=== PATIENT | female | born 1965 | race Caucasian/White ===

== ENCOUNTER → 2017-04-12 | Outpatient (CLI) | payer BC ==
[~2017-04-12] MED LIST: IBUP-1022 PO; TYLE325T5 PO
--- NOTE | 2017-04-12 15:34 | REP ---
BILATERAL DIGITAL SCREENING MAMMOGRAM, 04/12/2017. Comparison 03/26/2016, 03/05/2015. Clinical history: Screening examination. No current complaint or personal history of breast cancer. Family history of breast cancer in a maternal aunt over age 50. The breast parenchyma is heterogeneously dense, which may limit the sensitivity of mammography. On the CC view of the left breast inner half just past the midline retroareolar zone in the central one-third of the breast, there is a zone of architectural distortion on the CC view, which I cannot confirm by location on the MLO projection. I see no other area of architectural distortion, dominant mass, clustered microcalcification nor other secondary sign of malignancy. Scattered lymph nodes are seen in the axilla. IMPRESSION: BIRADS ACR category 0, incomplete: Needs additional imaging evaluation. The patient should return for spot magnification view left CC with true ML, MLO views of the left breast and any additional images required along with scheduling and ultrasound of the breast for further evaluation. This mammogram was interpreted with the aid of an FDA-approved computer-aided detection system. The patient states she/he had a clinical breast exam in March 2016. The patient letter being requested is M0. (Dense). Signed by Dipak Lyon MD 04/12/2017 07:06 P
== END ==
LOC: M RAD 12:44
PROVIDERS: ATTEND Obstetrics & Gynecology
DX: R92.8 Other abnormal and inconclusive findings on diagnostic imaging of breast (principal)

== ENCOUNTER → 2017-04-20 | Outpatient (CLI) | payer BC ==
--- NOTE | 2017-04-20 14:08 | REP ---
DIAGNOSTIC MAMMOGRAM, LEFT BREAST: Diagnostic mammogram, left breast performed with multiple spot compression views obtained. An area of architectural distortion on the left CC view seen on the exam of 04/12/2017 compresses out to an unchanged appearance compared to multiple prior exams. There is no persistent architectural distortion or mass identified. IMPRESSION: ACR 2, benign. No persistent mass or architectural distortion. Recommend followup mammogram in 1 year. BI-RADS/ACR category 2 mammogram. Benign finding(s). Routine annual screening mammography (for women over age 40). The patient letter being requested is M1. Signed by Mendez Hawthorne MD 04/20/2017 05:04 P
== END ==
LOC: M RAD 12:52
PROVIDERS: ATTEND Obstetrics & Gynecology
DX: R92.2 Inconclusive mammogram (principal)

== ENCOUNTER → 2018-05-30 | Outpatient (CLI) | payer BC | LOC: M RAD 13:04 | DX: Z12.31 Encounter for screening mammogram for malignant neoplasm of breast (principal) | CPT/HCPCS: 77067 ==

== ENCOUNTER → 2018-06-07 | Outpatient (REF) | payer BC ==
[2018-06-07 13:06] LABS: BASO % 0.3 % (0.0-1.0); EOS % 0.1 % (0.0-3.0); HEMATOCRIT 38.1 % (36.0-47.0); HEMOGLOBIN 12.1 g/dl (12.0-15.5); IMMATURE GRANULOCYTE % 0.4 % (0-3.0); LYMPH # 2.9 10^3/uL (1.5-4.5); LYMPH % 30.1 % (24.0-44.0); MEAN CORPUSCULAR HEMOGLOBIN 32.7 pg (27.0-33.0); MEAN CORPUSCULAR HGB CONC 31.8 g/dl (32.0-36.5); MONO # 0.5 10^3/uL (0.0-0.8); MONO % 5.3 % (0.0-5.0); NEUTROPHILS # 6.1 10^3/uL (1.8-7.7); NEUTROPHILS % 63.8 % (36.0-66.0); PLATELET COUNT, AUTOMATED 316 10^3/uL (150-450); RED CELL DISTRIBUTION WIDTH 13.3 % (11.5-14.5); WHITE BLOOD COUNT 9.5 10^3/uL (4.0-10.0)
[2018-06-07 15:10] LABS: ANION GAP 11 MEQ/L (8-16); BLOOD UREA NITROGEN 13 MG/DL (7-18); CALCIUM LEVEL 9.2 MG/DL (8.5-10.1); CARBON DIOXIDE LEVEL 25 MEQ/L (21-32); CHLORIDE LEVEL 107 MEQ/L (98-107); CHOLESTEROL LEVEL 151 MG/DL (<200); CHOLESTEROL RISK RATIO 1.864 (<5); CREATININE FOR GFR 0.68 MG/DL (0.55-1.30); GLOMERULAR FILTRATION RATE > 60.0 (>51); GLUCOSE, FASTING 63 MG/DL (70-100); HDL CHOLESTEROL 81 MG/DL (>40); LDL CHOLESTEROL 57 MG/DL (<100); NON-HDL-C 70 MG/DL; POTASSIUM SERUM 4.2 MEQ/L (3.5-5.1); SODIUM LEVEL 143 MEQ/L (136-145); TOTAL 25(OH) VITAMIN D 21.8 NG/ML (30.0-100.0); TRIGLYCERIDES LEVEL 66 MG/DL (<150)
== END ==
LOC: M LABNEURO 09:18
DX: Z00.00 Encounter for general adult medical examination without abnormal findings (principal); E55.9 Vitamin D deficiency, unspecified
CPT/HCPCS: 84443

== ENCOUNTER → 2018-06-21 | Outpatient (REF) | payer BC ==
[2018-06-21 14:17] LABS: FREE T4 1.02 NG/DL (0.76-1.46)
== END ==
LOC: M LABNEURO 09:59
DX: R94.6 Abnormal results of thyroid function studies (principal)

== ENCOUNTER → 2019-06-05 | Outpatient (CLI) | payer BC ==
--- NOTE | 2019-06-05 12:51 | REPMRS ---
Patient History The patient states she had a clinical breast exam in April 2019.Patient is postmenopausal. Family history of endometrial cancer at age 50 or over in mother, breast cancer at age 50 or over in maternal aunt. Took estrogen for 6 months. 3D TOMOSYNTHESIS WAS PERFORMED. The Eleno Haley lifetime risk for breast cancer is 11.4%. Digital Mammo Screening Bilat: June 05, 2019 - Exam #: [id number] Bilateral CC and MLO view(s) were taken. Technologist: Carmen Nance, Technologist Prior study comparison: May 30, 2018, bilateral digital mammo screening bilat performed at [facility]. April 20, 2017, left breast digital mammo diagnostic unilateral performed at [facility]. FINDINGS: The breast tissue is heterogeneously dense. This may lower the sensitivity of mammography. There has been no change in the appearance of the mammogram from the prior studies. There is a moderate amount of residual fibroglandular tissue which is fairly symmetric. There is no interval development of dominant mass, areas of architectural distortion, or clustered microcalcification typical of malignancy. Assessment: BI-RADS/ACR category 1 mammogram. Negative Mammogram. Recommendation Routine screening mammogram in 1 year (for women over age 40). This mammogram was interpreted with the aid of an FDA-approved computer-aided dectection system. Electronically Signed By: Mendez Hawthorne MD 06/05/19 [id number]
== END ==
LOC: M RAD 11:27
PROVIDERS: ATTEND Obstetrics & Gynecology
DX: Z12.31 Encounter for screening mammogram for malignant neoplasm of breast (principal)

== ENCOUNTER → 2020-11-17 | Outpatient (CLI) | payer BC ==
--- NOTE | 2020-11-17 15:13 | REPMRS ---
Patient History The patient states she had a clinical breast exam in July 2020. Family history of endometrial cancer at age 50 or over in mother, breast cancer at age 50 or over in maternal aunt. Took estrogen for 6 months. Digital Woman Screen Mammo: November 17, 2020 - Exam #: [id number] Bilateral CC and MLO view(s) were taken. Technologist: RT Deobra Prior study comparison: June 05, 2019, bilateral digital mammo screening bilat, performed at [facility]. May 30, 2018, bilateral digital mammo screening bilat, performed at [facility]. April 12, 2017, bilateral digital mammo screening bilat, performed at [facility]. FINDINGS: There are scattered fibroglandular densities. The Volpara volumetric breast density category is:B. There has been no change in the appearance of the mammogram from the prior studies. There is a mild amount of scattered fibroglandular density which is fairly symmetric. There is no interval development of dominant mass, architectural distortion, or grouped microcalcification suggestive of malignancy. 3-D tomosynthesis shows no additional findings. Assessment: BI-RADS/ACR category 1 mammogram. Negative Mammogram. Recommendation Routine screening mammogram of both breasts in 1 year (for women over age 40). This patient's [facility] Lifetime Breast Cancer Risk is estimated at 11.1 %. This mammogram was interpreted with the aid of an FDA-approved computer-aided dectection system. Electronically Signed By: Abhi Qiu MD 11/17/20 [id number]
--- NOTE | 2020-11-17 15:40 | DEXAMM ---
INDICATION: Z13.820 SCREENING FOR OSTEOPOROSIS. COMPARISON: None. TECHNIQUE: Bone density was measured using dual-energy x-ray absorptiometry (DEXA). FINDINGS: AP SPINE L1-L4 BMD 1.090 g/cm2 Young Adult T-Score -0.8 Age Matched Z-Score -0.1. LT FEMUR, TOTAL BMD 0.986 g/cm2 Young Adult T-Score -0.2 Age Matched Z-Score 0.5. LT NECK BMD 0.923 g/cm2 Young Adult T-Score -0.8 Age Matched Z-Score 0.2. RT FEMUR, TOTAL BMD 0.914 g/cm2 Young Adult T-Score -0.7 Age Matched Z-Score -0.1. RT NECK BMD 0.910 g/cm2 Young Adult T-Score -0.9 Age Matched Z-Score 0.1. IMPRESSION: There is normal bone density of the spine. There is normal bone density of the left hip. There is normal bone density of the right hip. FOLLOW-UP: Recommendation for the next bone density exam: 5 years. <Electronically signed by Mendez Hawthorne > 11/17/20 [id number]
== END ==
LOC: M WHC 14:19
PROVIDERS: ATTEND Advanced Practice Midwife
DX: Z12.31 Encounter for screening mammogram for malignant neoplasm of breast (principal); Z13.820 Encounter for screening for osteoporosis

== ENCOUNTER → 2021-01-05 | Outpatient (CLI) | payer BC ==
--- NOTE | 2021-01-05 14:24 | REP ---
INDICATION: N95.0 POSTMENOPAUSAL BLEEDING. COMPARISON: None TECHNIQUE: Transvesical and transvaginal imaging FINDINGS: The uterus measures 7.2 x 3.8 by 5.1 cm. Within the uterus 2 hypoechoic/mixed echo areas were seen 1 measures 2.2 x 2.1 x 1.9 cm and the other 1.7 x 1.5 x 1.9 cm. The endometrial echo complex measures approximately 1.1 cm in thickness and is somewhat heterogenous. Adjacent to the endometrium a few echogenic foci were noted without definite cyst formation. The right ovary measures 3.1 x 1.5 x 1.3 cm and is within normal limits. Left ovary measures 3.1 x 1.3 x 1.4 cm and is within normal limits. IMPRESSION: The uterus is full size/mildly enlarged with myomatous changes as described above. There are some changes in the endometrial echo complex as described above. Consider follow-up with pelvic MRI. <Electronically signed by Socrates Davey > 01/05/21 [id number]
== END ==
LOC: M WHC 12:24
PROVIDERS: ATTEND Obstetrics & Gynecology
DX: N95.0 Postmenopausal bleeding (principal)

== ENCOUNTER → 2021-04-28 | Outpatient (CLI) | payer BC ==
[2021-04-28 17:08] LABS: ALT/SGPT 20 U/L (12-78); BILIRUBIN,TOTAL 0.4 MG/DL (0.2-1.0); BLOOD UREA NITROGEN 14 MG/DL (7-18); CALCIUM LEVEL 8.5 MG/DL (8.5-10.1); CARBON DIOXIDE LEVEL 27 MEQ/L (21-32); CHLORIDE LEVEL 106 MEQ/L (98-107); CHOLESTEROL LEVEL 204 MG/DL (<200); CHOLESTEROL RISK RATIO 2.344 (<5); CREATININE FOR GFR 0.64 MG/DL (0.55-1.30); GLOMERULAR FILTRATION RATE > 60.0 (>51); GLUCOSE, FASTING 79 MG/DL (70-100); HDL CHOLESTEROL 87 MG/DL (>40); LDL CHOLESTEROL 102 MG/DL (<100); NON-HDL-C 117 MG/DL; POTASSIUM SERUM 4.4 MEQ/L (3.5-5.1); SODIUM LEVEL 138 MEQ/L (136-145); TOTAL 25(OH) VITAMIN D 20.1 NG/ML (30.0-100.0); TOTAL PROTEIN 7.3 GM/DL (6.4-8.2); TRIGLYCERIDES LEVEL 73 MG/DL (<150)
--- NOTE | 2021-04-28 21:37 | REP ---
INDICATION: M79.644 PAIN IN RIGHT FINGERS COMPARISON: None. TECHNIQUE: AP, lateral, bilateral oblique views right hand. 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 Moderate degenerative changes are also identified throughout the remainder of the metacarpophalangeal and interphalangeal joints including periarticular sclerosis and minimal joint space narrowing. No evidence for acute fracture or dislocation. No subcutaneous emphysema or foreign body. 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 <Electronically signed by Romeo Kent > 04/28/21 [id number]
== END ==
LOC: M WUC 13:31
PROVIDERS: ATTEND Nurse Practitioner Family
DX: Z00.00 Encounter for general adult medical examination without abnormal findings (principal); E55.9 Vitamin D deficiency, unspecified; M79.644 Pain in right finger(s)

== ENCOUNTER → 2021-05-25 | Outpatient (CLI) | payer BC ==
--- NOTE | 2021-05-27 05:09 | REP ---
INDICATION: PERSONAL HX NICOTINE DEPENDENCE COMPARISON: None. TECHNIQUE: Axial noncontrast images from the thoracic inlet to the upper abdomen using low-dose lung screening technique (LDCT). FINDINGS: Lung ness are relatively well aerated and symmetric. There is a small amount of presumed scarring at the lingular base. No acute consolidation, significant nodule or mass lesion. No effusion. No pneumothorax. Tracheobronchial tree is patent. Mediastinum is grossly normal. IMPRESSION: Lung-RADS category 1. Management recommendations include annual low-dose CT surveillance. <Electronically signed by Romeo Kent > 05/27/21 [id number]
== END ==
LOC: M RAD 13:38
PROVIDERS: ATTEND Nurse Practitioner Family
DX: Z12.2 Encounter for screening for malignant neoplasm of respiratory organs (principal); Z87.891 Personal history of nicotine dependence

== ENCOUNTER → 2022-01-04 | Outpatient (CLI) | payer BC | LOC: M WHC 15:07 | PROVIDERS: ATTEND Advanced Practice Midwife | DX: Z12.31 Encounter for screening mammogram for malignant neoplasm of breast (principal) ==

== ENCOUNTER → 2022-06-28 | Outpatient (CLI) | payer BC ==
[2022-06-28 12:12] LABS: ALBUMIN 3.8 GM/DL (3.2-5.2); ALT/SGPT 21 U/L (12-78); BILIRUBIN,TOTAL 0.3 MG/DL (0.2-1.0); BLOOD UREA NITROGEN 13 MG/DL (7-18); CALCIUM LEVEL 9.1 MG/DL (8.5-10.1); CARBON DIOXIDE LEVEL 29 MEQ/L (21-32); CHLORIDE LEVEL 107 MEQ/L (98-107); CHOLESTEROL LEVEL 178 MG/DL (<200); CHOLESTEROL RISK RATIO 2.507 (<5); GLOMERULAR FILTRATION RATE > 60.0 (>51); GLUCOSE, FASTING 92 MG/DL (70-100); HDL CHOLESTEROL 71 MG/DL (>40); LDL CHOLESTEROL 85 MG/DL (<100); NON-HDL-C 107 MG/DL; POTASSIUM SERUM 4.3 MEQ/L (3.5-5.1); SODIUM LEVEL 141 MEQ/L (136-145); TOTAL PROTEIN 7.4 GM/DL (6.4-8.2); TRIGLYCERIDES LEVEL 108 MG/DL (<150)
== END ==
LOC: M WUC 08:42
PROVIDERS: ATTEND Nurse Practitioner Family
DX: Z00.00 Encounter for general adult medical examination without abnormal findings (principal)

== ENCOUNTER → 2022-10-05 | Outpatient (CLI) | payer BC | LOC: M RAD 12:42 | PROVIDERS: ATTEND Nurse Practitioner Family | DX: Z87.891 Personal history of nicotine dependence (principal) ==

== ENCOUNTER → 2023-05-03 | Outpatient (CLI) | payer BC | LOC: M WHC 12:39 | PROVIDERS: ATTEND Obstetrics & Gynecology | DX: Z13.820 Encounter for screening for osteoporosis (principal) ==

== ENCOUNTER → 2023-06-21 | Outpatient (REF) | payer BC ==
[2023-06-21 17:03] LABS: ALBUMIN 4.3 G/DL (3.2-5.2); ALKALINE PHOSPHATASE 101 U/L (46-116); ALT/SGPT 22 U/L (7.0-40); AST/SGOT 19 U/L (<34); BILIRUBIN,TOTAL 0.6 MG/DL (0.3-1.2); BLOOD UREA NITROGEN 20 MG/DL (9-23); CALCIUM LEVEL 9.5 MG/DL (8.5-10.1); CARBON DIOXIDE LEVEL 29 MMOL/L (20-31); CHLORIDE LEVEL 103 MMOL/L (98-107); CREATININE FOR GFR 0.72 MG/DL (0.55-1.30); GLOMERULAR FILTRATION RATE > 60.0 (>51); GLUCOSE, FASTING 84 MG/DL (60-100); POTASSIUM SERUM 4.8 MMOL/L (3.5-5.1); SODIUM LEVEL 141 MMOL/L (136-145); TOTAL PROTEIN 7.6 G/DL (5.7-8.2)
[2023-06-21 17:07] LABS: TOTAL 25(OH) VITAMIN D 35.2 NG/ML (20.0-100.0)
== END ==
LOC: M WUC 16:18
PROVIDERS: ATTEND Registered Nurse
DX: J45.20 Mild intermittent asthma, uncomplicated (principal); E55.9 Vitamin D deficiency, unspecified

== ENCOUNTER → 2023-07-05 | Outpatient (CLI) | payer BC | LOC: M WUC 11:44 | PROVIDERS: ATTEND Nurse Practitioner Family | DX: M54.50 Low back pain, unspecified (principal); M25.551 Pain in right hip ==

== ENCOUNTER → 2023-10-18 | Outpatient (CLI) | payer BC | LOC: M RAD 09:49 | PROVIDERS: ATTEND Nurse Practitioner Family | DX: Z87.891 Personal history of nicotine dependence (principal) ==

== ENCOUNTER 2024-03-05 06:42 | Day surgery (SDC) | payer BC ==
[~2024-03-05] VITALS: Ht 162.6 cm; Wt 72.1 kg
[~2024-03-05 06:42] MED LIST changes: +ALBU8.5H; +MELO7.5T35 PO; +NS 1,000 ML IV ONE
[2024-03-05] MEDS ORDERED: propofoL 200 MG/20 ML VIAL As Ordered ONE (07:18)
[2024-03-05] MEDS ORDERED: LIDOCAINE 2% 100MG/5ML SDV (FOR ANES.) As Ordered ONE (07:21)
[2024-03-05 07:53] VITALS: TEMP 97.3
[2024-03-05 08:12] VITALS: BP 112/58; O2SAT 18
== END 2024-03-05 08:14 | disposition home or self-care (01) ==
LOC: M OPP 06:42
PROVIDERS: ATTEND Internal Medicine Gastroenterology
DX: Z12.11 Encounter for screening for malignant neoplasm of colon (principal); Z86.010 Personal history of colon polyps; K64.0 First degree hemorrhoids; K57.30 Diverticulosis of large intestine without perforation or abscess without bleeding; Z87.891 Personal history of nicotine dependence; Z79.1 Long term (current) use of non-steroidal anti-inflammatories (NSAID); Z79.52 Long term (current) use of systemic steroids; Z79.899 Other long term (current) drug therapy

== ENCOUNTER → 2024-05-21 | Outpatient (CLI) | payer BC ==
[~2024-05-21] MED LIST changes: -NS 1,000 ML IV ONE
== END ==
LOC: M WHC 14:21
PROVIDERS: ATTEND Obstetrics & Gynecology
DX: Z12.31 Encounter for screening mammogram for malignant neoplasm of breast (principal); R92.323 Mammographic fibroglandular density, bilateral breasts

== ENCOUNTER → 2024-10-09 | Outpatient (CLI) | payer BC ==
[2024-10-09 10:03] LABS: ALBUMIN 3.8 G/DL (3.2-5.2); ALKALINE PHOSPHATASE 72 U/L (35-104); ALT/SGPT 11 U/L (7.0-40); AST/SGOT 12 U/L (<34); BILIRUBIN,TOTAL 0.4 MG/DL (0.3-1.2); BLOOD UREA NITROGEN 26 MG/DL (9-23); CALCIUM LEVEL 8.8 MG/DL (8.5-10.1); CARBON DIOXIDE LEVEL 28 MMOL/L (20-31); CHLORIDE LEVEL 103 MMOL/L (98-107); CHOLESTEROL LEVEL 188 MG/DL (<200); CHOLESTEROL RISK RATIO 2.48 (<5); CREATININE FOR GFR 0.75 MG/DL (0.55-1.30); GLOMERULAR FILTRATION RATE > 60.0 (>51); GLUCOSE, FASTING 89 MG/DL (60-100); HDL CHOLESTEROL 75.8 MG/DL (>40); LDL CHOLESTEROL 76.4 MG/DL (<100); NON-HDL-C 112.2 MG/DL; POTASSIUM SERUM 4.4 MMOL/L (3.5-5.1); SODIUM LEVEL 140 MMOL/L (136-145); TOTAL PROTEIN 7.4 G/DL (5.7-8.2); TRIGLYCERIDES LEVEL 179 MG/DL (<150)
[2024-10-09 10:04] LABS: TOTAL 25(OH) VITAMIN D 23.7 NG/ML (20.0-100.0)
== END ==
LOC: M WUC 08:13
PROVIDERS: ATTEND Nurse Practitioner Family
DX: Z00.00 Encounter for general adult medical examination without abnormal findings (principal); E55.9 Vitamin D deficiency, unspecified

== ENCOUNTER → 2025-01-28 | Outpatient (CLI) | payer BC | LOC: M RAD 13:48 | PROVIDERS: ATTEND Nurse Practitioner Family | DX: Z87.891 Personal history of nicotine dependence (principal) ==

== ENCOUNTER → 2025-08-05 | Outpatient (CLI) | payer BC ==
[~2025-08-05] MED LIST changes: -IBUP-1022 PO; +IBUP600T42 PO
[2025-08-05 12:19] LABS: BASO # 0.1 10^3/uL (0.0-0.2); BASO % 0.8 % (0.0-1.0); EOS # 0.2 10^3/uL (0.0-0.5); EOS % 3.9 % (0.0-3.0); LYMPH # 1.4 10^3/uL (1.5-5.0); LYMPH % 23.1 % (24.0-44.0); MONO # 0.4 10^3/uL (0.0-0.8); MONO % 6.8 % (2.0-8.0); NEUTROPHILS # 4.0 10^3/uL (1.5-8.5); NEUTROPHILS % 65.2 % (36.0-66.0); PLATELET COUNT, AUTOMATED 274 10^3/uL (150-450)
[2025-08-05 12:22] LABS: ALT/SGPT 20 U/L (7.0-40); AST/SGOT 19 U/L (<34); CALCIUM LEVEL 8.8 MG/DL (8.5-10.1); CARBON DIOXIDE LEVEL 27 MMOL/L (20-31); CHLORIDE LEVEL 106 MMOL/L (98-107); CHOLESTEROL LEVEL 187 MG/DL (<200); CHOLESTEROL RISK RATIO 2.57 (<5); CREATININE FOR GFR 0.70 MG/DL (0.55-1.30); GLOMERULAR FILTRATION RATE > 90.0 (>51); LDL CHOLESTEROL 87.7 MG/DL (<100); NON-HDL-C 114.5 MG/DL; POTASSIUM SERUM 4.6 MMOL/L (3.5-5.1); SODIUM LEVEL 142 MMOL/L (136-145); TRIGLYCERIDES LEVEL 134 MG/DL (<150)
[2025-08-05 12:26] LABS: TOTAL 25(OH) VITAMIN D 26.0 NG/ML (20.0-100.0)
== END ==
LOC: M WUC 08:30
PROVIDERS: ATTEND Nurse Practitioner Family
DX: Z00.00 Encounter for general adult medical examination without abnormal findings (principal); E55.9 Vitamin D deficiency, unspecified

== ENCOUNTER → 2025-08-23 | Outpatient (CLI) | payer BC | LOC: M SOG 07:39 | PROVIDERS: ATTEND Physician Assistant | DX: M79.641 Pain in right hand (principal); M79.644 Pain in right finger(s); M19.041 Primary osteoarthritis, right hand ==